=== PATIENT | female | born 1990 | race Caucasian/White ===

== ENCOUNTER 2016-05-26 09:00 | Emergency (ER) ==
--- NOTE | 2016-05-26 10:22 | PROVIDER DOCUMENTATION ---
HPI-Abdominal Pain/GI Problem - General Chief Complaint: Abdominal Pain Stated Complaint: N/V/D Time Seen by Provider: 05/26/16 10:14 Source: patient Allergies/Adverse Reactions: Patient Allergies Allergy/AdvReac Type Severity Reaction Status Date / Time Sulfa (Sulfonamide Allergy Mild RASH Verified 03/17/16 13:32 Antibiotics) Home Medications: Hydroxyzine 10 mg PO TID PRN 02/13/16 Dicyclomine [Bentyl] 20 mg PO Q6H PRN PRN 05/26/16 Meloxicam [Mobic] 7.5 mg PO DAILY 05/26/16 Pantoprazole [Protonix] 40 mg PO DAILY@0700 05/26/16 - History of Present Illness-ABD Nature of Presenting Problems: 25 y/o WF c/o periumbilical pain that comes and goes. She has had multiple episodes of this in the past, dx with IBS seen multiple times in the ER in February and again in March for these same symptoms. Had EGD done in March that just showed gastritis and duodenitis. Reports > 3 episodes of vomiting last night and today, with diarrhea 3-4 times in the past 24 hours. Ate a poptart last night around 1900, but has not eaten anything today. Denies Fevers, chills or change in the pain from prior. Is is aching, non radiating, worse after eating. Denies sick contacts or new foods. Review of Systems - Adult - REVIEW OF SYSTEMS - ADULT Constitutional: reports: no symptoms reported. denies: chills, fever, fatique Eyes: reports: no symptoms reported. denies: blurred vision, double vision, eye pain Ears, Nose, Mouth & Throat: reports: no symptoms reported. denies: ear pain, nose pain, throat pain Cardiovascular: reports: no symptoms reported. denies: chest pain, palpitations Respiratory: reports: no symptoms reported. denies: cough, shortness of breath , wheezing Gastrointestinal: reports: see HPI, abdominal pain, diarrhea, nausea, poor appetite, vomiting Genitourinary: reports: no symptoms reported. denies: dysuria, discharge, frequency, incontinence Musculoskeletal: reports: no symptoms reported. denies: muscle aches Integumentary: reports: no symptoms reported. denies: rash Neurological: reports: no symptoms reported. denies: headache/migraines Psychiatric: reports: no symptoms reported Endocrine: reports: no symptoms reported Hematologic/Lymphatic: reports: no symptoms reported Allergic/Immunologic: reports: no symptoms reported All Other Systems: Reviewed and Negative Past History - Adult - PAST MEDICAL HISTORY-ADULT Review of Records: reports: Old Records Reviewed, Nursing Assessment Review, Medications Reviewed, Social history reviewed & non-contributory. Major Childhood Illnesses: reports: denies history Cardiovascular: reports: denies history Respiratory: reports: denies history Gastrointestinal: reports: IBS Genitourinary: reports: denies history Musculoskeletal: reports: denies history Neurological: reports: denies history Psychiatric: reports: denies history Endocrine/Immune: reports: denies history Other Conditions: reports: other - PRIOR SURGERIES/PROCEDURES Surgical/Procedure History: reports: tonsillectomy, breast - IMMUNIZATION STATUS Childhood Immunizations: See Nurse Assessment Flu Vaccine: See Nurse Assessment - FAMILY HISTORY Family History: reviewed, not pertinent - SOCIAL HISTORY Smoking: denies Substance Use: none/never Alcohol Use Frequency: never Physical Exam-General - PHYSICAL EXAM-ADULT Initial Vital Signs Reviewed: Yes - CONSTITUTIONAL General Appearance: appears well, alert, no apparent distress - EYES Eyes: PERRL/EOMI, pink conjunctivae - HEAD, EARS, NOSE, MOUTH & THROAT HENMT: normocephalic/atraumatic, moist mucous membranes - NECK Neck: non-tender, full range of motion, supple, normal inspection. negative: lymphadenopathy - RESPIRATORY Respiratory: chest non-tender, lungs clear, normal breath sounds, no pleuratic chest pain, no respiratory distress, no accessory muscle use. negative: respiratory distress, decreased breath sounds, accessory muscle use, crackles, rales, rhonchi, wheezing - CARDIOVASCULAR Cardiovascular: normal peripheral pulses, regular rate, rhythm, no edema - GASTROINTESTINAL (ABDOMEN) Abdominal Exam: normal bowel sounds, soft, no organomegaly, no pulsatile mass, tenderness (periumbilical). negative: abdominal bruit, abnormal bowel sounds, distended, guarding, rigid, rebound - LYMPHATIC Lymphatic: no adenopathy - MUSCULOSKELETAL Extremity: normal gait - SKIN Integumentary: normal color, normal turgor, warm/dry - NEUROLOGIC Neurologic: grossly normal, no motor/sensory deficits - PSYCHIATRIC Psych/Mental Status: normal mood/affect, normal thought content, normal thought process, oriented x 3 Progress - PLAN OF CARE/RESULTS Progress/Plan/Lab Results: Vital Signs Temp Pulse Pulse Pulse Pulse Resp BP 05/26/16 13:44 77 90 73 05/26/16 12:42 98.8 F 94 H 16 128/88 05/26/16 09:35 98.3 F 69 24 138/82 BP BP BP Pulse Ox 05/26/16 13:44 129/83 123/86 113/74 05/26/16 12:42 99 05/26/16 09:35 97 Sulfa (Sulfonamide Antibiotics) Allergy (Mild, Verified 03/17/16 13:32) RASH Hydroxyzine 10 mg PO TID PRN 02/13/16 Dicyclomine [Bentyl] 20 mg PO BID #30 capsule 05/26/16 Dicyclomine [Bentyl] 20 mg PO Q6H PRN PRN 05/26/16 Meloxicam [Mobic] 7.5 mg PO DAILY 05/26/16 Pantoprazole [Protonix] 40 mg PO DAILY@0700 05/26/16 Promethazine [Phenergan] 25 mg PO Q6H PRN PRN #20 tablet 05/26/16 Laboratory 05/26/16 05/26/16 05/26/16 11:00 11:00 10:34 WBC 8.87 RBC 5.21 Hgb 13.2 Hct 41.0 MCV 78.7 L MCH 25.3 L MCHC 32.2 L RDW Std Deviation 13.9 Plt Count 328 MPV 9.8 Immature Gran % (Auto) 0.1 Neut % (Auto) 69.9 Lymph % (Auto) 18.9 L Ramsey % (Auto) 7.7 Eos % (Auto) 3.3 Baso % (Auto) 0.1 Immature Gran # (Auto) 0.01 Neut # (Auto) 6.20 Lymph # (Auto) 1.68 Ramsey # (Auto) 0.68 H Eos # (Auto) 0.29 Baso # (Auto) 0.01 Sodium Potassium Chloride Carbon Dioxide Anion Gap BUN Creatinine Estimated GFR/1.73 m2 BUN/Creatinine Ratio Glucose Calculated Osmolality Calcium Total Bilirubin AST ALT Alkaline Phosphatase Total Protein Albumin Globulin Albumin/Globulin Ratio Amylase Lipase Urine Source CLEAN CATCH Urine Color YELLOW Urine Clarity SL. CLOUDY A Urine pH 5.0 Ur Specific [place] 1.020 Urine Protein TRACE A Urine Ketones NEGATIVE Urine Blood 3+ A Urine Nitrite NEGATIVE Urine Bilirubin NEGATIVE Urine Urobilinogen NORMAL Urine Microscopic RBC 20-40 A Urine WBC NEGATIVE Urine Microscopic WBC <10 Ur Epithelial Cells >10 A Urine Crystals CA OXALATE PRESENT Urine Bacteria 1+ Urine Glucose NEGATIVE Urine Test NEGATIVE 05/26/16 10:34 WBC RBC Hgb Hct MCV MCH MCHC RDW Std Deviation Plt Count MPV Immature Gran % (Auto) Neut % (Auto) Lymph % (Auto) Ramsey % (Auto) Eos % (Auto) Baso % (Auto) Immature Gran # (Auto) Neut # (Auto) Lymph # (Auto) Ramsey # (Auto) Eos # (Auto) Baso # (Auto) Sodium 140 Potassium 4.0 Chloride 106 Carbon Dioxide 25 Anion Gap 9 BUN 6 L Creatinine 0.5 Estimated GFR/1.73 m2 > 60 BUN/Creatinine Ratio 12 Glucose 97 Calculated Osmolality 277 Calcium 9.4 Total Bilirubin 0.30 AST 22 ALT 29 Alkaline Phosphatase 103 Total Protein 7.2 Albumin 4.0 Globulin 3.0 Albumin/Globulin Ratio 1.0 Amylase 51 Lipase 24 Urine Source Urine Color Urine Clarity Urine pH Ur Specific [place] Urine Protein Urine Ketones Urine Blood Urine Nitrite Urine Bilirubin Urine Urobilinogen Urine Microscopic RBC Urine WBC Urine Microscopic WBC Ur Epithelial Cells Urine Crystals Urine Bacteria Urine Glucose Urine Test Orders Category Date Time Status NPO Diet 05/26/16 10:16 Completed AMYLASE [CHEM] Stat Lab 05/26/16 10:34 Completed CBC WITH ELECTRONIC DIFF [HEME] Stat Lab 05/26/16 10:34 Completed COMPREHENSIVE METABOLIC PANEL [CHEM] Stat Lab 05/26/16 10:34 Completed LIPASE [CHEM] Stat Lab 05/26/16 10:34 Completed TEST-URINE [PREG] Stat Lab 05/26/16 11:[address] W/POSS RFLX CULT [URINALYSIS] Stat Lab 05/26/16 11:00 Completed Lido/Thompson Alk/Al&mg Hydrox [G.i. Cocktail] Med 05/26/16 10:30 Discontinued 30 ml PO NOW ONE Promethazine [Phenergan] Med 05/26/16 10:30 Discontinued 25 mg IM NOW ONE Departure - Departure Time of Disposition Order: 14:00 DIAGNOSIS: Gastroenteritis Disposition: HOME 01 Certified Medical Emergency: Emergent Condition: Stable Additional Instructions: Follow up with GI tomorrow ED Follow Up Instructions: You have been treated by a care provider in the Emergency Department. These instructions are being provided to you so you can have an understanding of how to care for yourself upon discharge. Upon discharge from the Emergency Department, you are responsible for making arrangements for follow-up care by a physician of your choice. Take all prescribed medications as directed. Return to the Emergency Department immediately for any new or worsening symptoms. You may call the Physician Referral phone number at [phone] to obtain a list of Physicians who are taking new patients. Prescriptions: Dicyclomine [Bentyl] 20 mg PO BID #30 capsule Promethazine [Phenergan] 25 mg PO Q6H PRN PRN #20 tablet PRN Reason: Nausea Referrals: Sadia Anderson MD [Primary Care Provider] - Forms: Return to School/Parent Work Instructions: Dicyclomine tablets or capsules, Viral Gastroenteritis, Easy-to- Read, Promethazine tablets Attestation - Physician/ Mid-level Attestation Patient care was provided by Mid-level provider (ANIMAL HUMANE AGENT SUPERVISOR/PA):: Yes Mid-level provider:: Mena Arreola Mid-level documentation review:: The Mid-level provider documentation, treatment plan and medical decision making was reviewed by the physician who agrees with all treatment and medical decision making by the P.
[2016-05-26] MEDS ORDERED: PHENERGAN IM ONE (10:30)
[2016-05-26] MEDS ORDERED: G.I. COCKTAIL PO ONE (10:30)
[2016-05-26 10:45] LABS: MANUAL DIFF NEEDED? NO
[2016-05-26 11:02] LABS: BASO% 0.1 % (0.0-0.8); EOS# 0.29 X1000 (0.0-0.7); EOS% 3.3 % (0.0-10.0); HEMOGLOBIN 13.2 g/dL (12.0-16.0); IMM GRAN# 0.01 X1000 (0.0-0.04); IMM GRAN% 0.1 % (0.0-0.5); LYMPH# 1.68 X1000 (1.2-3.4); LYMPH% 18.9 % (20.5-51.1); MCH 25.3 PG (27-31); MCHC 32.2 g/dL (33-37); MCV 78.7 FL (81-99); MONO# 0.68 X1000 (0.11-0.59); MONO% 7.7 % (1.7-9.3); MPV 9.8 FL (7.4-10.4); NEUT% 69.9 % (42.2-75.2); PLT 328 X1000 (130-400); RBC 5.21 XMIL (4.2-5.4)
[2016-05-26 11:10] LABS: AGAP 9; ALKALINE PHOSPHATASE 103 U/L (32-104); AMYLASE 51 U/L (20-200); BUN 6 mg/dL (8-22); CALCIUM 9.4 mg/dL (8.8-10.2); CHLORIDE 106 mmol/L (98-107); COSMO 277; GOT 22 U/L (10-30); GPT 29 U/L (10-36); LIPASE 24 U/L (13-60); SODIUM 140 mmol/L (136-145); TCO2 25 mmol/L (25-35); TOTAL PROTEIN 7.2 g/dL (6.3-8.3)
[2016-05-26 11:19] LABS: URINE CULTURE PL NEEDED? NO; URINE SOURCE CLEAN CATCH
[2016-05-26 11:36] LABS: BILIRUBIN URINE NEGATIVE (NEGATIVE); BLOOD URINE 3+ (NEGATIVE); CLARITY SL. CLOUDY (CLEAR); COLOR YELLOW; GLUCOSE URINE NEGATIVE (NEGATIVE); LEUKOCYTES URINE NEGATIVE (NEGATIVE); NITRITE URINE NEGATIVE (NEGATIVE); PROTEIN URINE TRACE mg/dL (NEGATIVE); UROBILINOGEN URINE NORMAL
[2016-05-26 11:47] LABS: URINE CRYSTAL CA OXALATE PRESENT /HPF; URINE EPITHELIAL CELLS >10 /HPF (<10); URINE RBC 20-40 /HPF (<10); URINE WBC <10 /HPF (<10)
[2016-05-26 13:45] VITALS: BP 113/74
== END 2016-05-26 14:15 | disposition home or self-care (01) ==
LOC: P.ED 09:00
DX: K52.9 Noninfective gastroenteritis and colitis, unspecified (principal); R10.33 Periumbilical pain; R11.2 Nausea with vomiting, unspecified; R19.7 Diarrhea, unspecified; R10.815 Periumbilic abdominal tenderness; K58.9 Irritable bowel syndrome, unspecified; Z79.1 Long term (current) use of non-steroidal anti-inflammatories (NSAID); Z79.899 Other long term (current) drug therapy
CPT/HCPCS: 36415; 80053; 81001; 81025; 82150; 83690; 85025; 96372; J2550

== ENCOUNTER 2016-07-08 07:47 | Day surgery (SDC) ==
[2016-07-06 09:32] LABS: ALBUMIN 3.5 g/dL (3.5-5.0); ALKALINE PHOSPHATASE 105 U/L (32-104); DIRECT BILIRUBIN < 0.20 mg/dL (0.00-0.20); GOT 20 U/L (10-30); GPT 26 U/L (10-36); TOTAL BILIRUBIN 0.26 mg/dL (0.20-1.00); TOTAL PROTEIN 7.2 g/dL (6.3-8.3)
[2016-07-08] MEDS ORDERED: KEFZOL 1 GM/D5W 50 ML ONE (08:34)
[2016-07-08] MEDS ORDERED: LR 1,000 ML ONE ×2 (08:34→09:57)
[2016-07-08] MEDS ORDERED: REGLAN ONE (08:35)
[2016-07-08] MEDS ORDERED: PEPCID ONE (08:35)
[2016-07-08] MEDS ORDERED: SODIUM CHLORIDE 0.9% ONE (09:57)
[2016-07-08] MEDS ORDERED: MARCAINE 0.25% PF/EPI 1:200,000 ONE (09:57)
[2016-07-08] MEDS ORDERED: DIPRIVAN 1% ONE (11:25)
[2016-07-08] MEDS ORDERED: FENTANYL ONE (11:25)
[2016-07-08] MEDS ORDERED: NORCO-10 ONE (11:51)
[2016-07-08] MEDS ORDERED: ZOFRAN ONE (11:52)
[2016-07-08] MEDS ORDERED: ZEMURON ONE (11:52)
[2016-07-08] MEDS ORDERED: DECADRON ONE (11:52)
[2016-07-08] MEDS ORDERED: NEOSTIGMINE ONE (11:52)
[2016-07-08] MEDS ORDERED: QUELICIN (DOSE) ONE (11:52)
[2016-07-08] MEDS ORDERED: ROBINUL ONE (11:53)
[2016-07-08] MEDS ORDERED: NORCO-10 PO PRN (11:58)
[2016-07-08] MEDS ORDERED: ZOFRAN IV PRN (11:58)
[2016-07-08] MEDS ORDERED: BUPRENEX IV PRN (11:58)
[2016-07-08 12:03] VITALS: BP 128/90
--- NOTE | 2016-07-08 13:09 | Diag Imaging Result Document ---
PROCEDURE NAME: OPERATIVE CHOLANGIOGRAM - 07/08/2016 INTRAOPERATIVE CHOLANGIOGRAM, 2 VIEWS: FINDINGS: There are no filling defects or obstructing lesions. There is contrast in the duodenum. IMPRESSION: No evidence of retained stones.
--- NOTE | 2016-07-08 14:15 | OPERATIVE NOTE ---
PROCEDURE DATE: 07/08/2016 PREOPERATIVE DIAGNOSIS: Chronic calculous cholecystitis. POSTOPERATIVE DIAGNOSIS: Chronic calculous cholecystitis. PROCEDURE: Laparoscopic cholecystectomy with operative cholangiogram. SURGEON: Johny Ingram MD ANESTHESIA: General. ESTIMATED BLOOD LOSS: 5 mL. COMPLICATIONS: None apparent. SPECIMENS: Gallbladder. FINDINGS: The gallbladder was moderately distended. The cholangiogram revealed normal hepatic radicals and common bile duct. There were no filling defects or stenoses appreciated. There was flow of contrast seen flowing into the duodenum. TECHNIQUE: She was brought to the operating room and placed supine on the table. General anesthesia was induced. She was prepped and draped in the usual sterile fashion, 0.25% Marcaine with epinephrine was used to anesthetize our skin incisions. An 11 mm incision was made just below the umbilicus. The fascia was exposed and incised sharply under direct vision. Entry into the peritoneal cavity was obtained under direct vision with the Optiview device. Pneumoperitoneum was established. The camera was inserted. There was no evidence of injury to underlying structures. She was placed in reverse Trendelenburg and left rotation. Three 5 mm incision and ports were placed in the epigastric and right upper quadrant under direct vision per usual routine. The dome of the gallbladder was grasped by the planning assistant with an Allis clamp and lifted up superiorly over the liver. The triangle of Calot was then dissected out with the [place] forceps bluntly and I used the hook cautery to incise the peritoneum on either side of the triangle. The critical view was obtained. The gallbladder liver junction was seen. There were only 2 structures entering the gallbladder the cystic duct and cystic artery. The duct was clipped distally. A ductotomy was made proximal to this with scissors. A 14-gauge Angiocath was passed through the right upper quadrant. The Taut cholangiogram catheter was passed through this into the cystic duct and held in place with a clip. The cholangiogram was then performed with findings as noted above. The clip, catheter, and Angiocath were then removed. Two clips were placed on the proximal cystic duct and it was divided with scissors distal to these two. The cystic artery was clipped twice proximally and once distally, and incised in between with scissors. The gallbladder was then taken down off the liver bed with hook cautery obtaining hemostasis along the way. I then inspected the dissection area of the liver bed, there was a minimal amount of bloody oozing, which was controlled easily with cautery. I irrigated with saline and suctioned out the old blood and irrigant. There were no signs of any further bleeding or any bile leakage. The gallbladder was then brought out through the umbilical port site under direct vision. I then closed the umbilical fascia with a [id number] 0 Vicryl using the Ketan-Felix device under direct vision. The abdomen was then desufflated, the ports were removed. The skin was closed with running 4-0 subcuticular Monocryl and Steri-Strips. There were no apparent complications. She was awakened in stable condition and transferred to the recovery room.
== END 2016-07-08 12:15 | disposition home or self-care (01) ==
LOC: OPS 07:47
PROVIDERS: ATTEND Surgery
DX: K80.10 Calculus of gallbladder with chronic cholecystitis without obstruction (principal); I10 Essential (primary) hypertension; F41.9 Anxiety disorder, unspecified; Z87.891 Personal history of nicotine dependence
CPT/HCPCS: 74300; 80076; 84703; 88304; C1751; J0330; J0690; J1100; J2405; J3010; J7120; Q9966; J2710